=== PATIENT | female | born 1995 | race African-American/Black ===

== ENCOUNTER 2021-07-23 04:21 | Outpatient (CLI) | payer MEDICAID ==
[2021-07-23 09:47] LABS: Bilirubin,Urine NEG (Negative); Blood,Urine NEG (Negative); Color,Urine Yellow (Yellow); Protein,Urine <15 mg/dL mg/dL (Negative); RBC,Urine < 1.0 /HPF (0.0-6.0); Urobilinogen,Urine < 2.0 mg/dL (<2.0); WBC,Urine < 1.0 /HPF (0.0-6.0)
[2021-07-23 11:27] VITALS: BP 99/46
--- NOTE | 2021-07-24 06:44 | Ultrasound Report ---
ULTRASOUND OBSTETRIC LIMITED ULTRASOUND BIOPHYSICAL PROFILE INDICATION / CLINICAL INFORMATION: 40.1 weeks . Evaluate biophysical profile. COMPARISON: None available. FINDINGS: BREATHING MOVEMENT = 2 GROSS BODY MOVEMENT = 2 TONE = 2 QUALITATIVE AMNIOTIC FLUID VOLUME = 2 TOTAL BIOPHYSICAL SCORE = 8/8 AMNIOTIC FLUID INDEX (cm) = 11.3 PRESENTATION: Cephalic. HEART RATE (beats per minute): 134 ADDITIONAL FINDINGS: None. IMPRESSION: 1. Biophysical Score = 8/8 Signer Name: Billy Lemus MD Signed: 07/24/2021 6:39 AM Workstation Name: [id number]
== END 2021-07-23 13:19 | disposition home or self-care (01) ==
LOC: TRG 04:21 → APU 04:23 → TRG 13:19
PROVIDERS: ATTEND Obstetrics & Gynecology Gynecology
DX: Z34.93 Encounter for supervision of normal pregnancy, unspecified, third trimester (principal); Z3A.40 40 weeks gestation of pregnancy
CPT/HCPCS: 59025; 76815; 76819; 81001